=== PATIENT | male | born 1970 | race African-American/Black ===

== ENCOUNTER 2017-02-18 16:01 | Emergency (ER) | payer SELFPAY ==
[~2017-02-18] VITALS: Ht 182.9 cm; Wt 121.5 kg
[2017-02-18 16:58] VITALS: BP 104/66
== END 2017-02-18 17:34 | disposition left against medical advice (07) ==
LOC: EME 16:01
DX: T40.7X1A Poisoning by cannabis (derivatives), accidental (unintentional), initial encounter (principal); E11.9 Type 2 diabetes mellitus without complications; I10 Essential (primary) hypertension; Z86.718 Personal history of other venous thrombosis and embolism
CPT/HCPCS: 99281; 99283

== ENCOUNTER 2017-02-21 15:12 | Emergency (ER) | payer SELFPAY ==
[~2017-02-21] VITALS: Ht 182.9 cm; Wt 123.7 kg
[2017-02-21 15:23] VITALS: BP 102/67
== END 2017-02-21 15:28 | disposition left against medical advice (07) ==
LOC: EME → EDBD 15:12 → EME 15:19
DX: Z03.89 Encounter for observation for other suspected diseases and conditions ruled out (principal); Z53.21 Procedure and treatment not carried out due to patient leaving prior to being seen by health care provider

== ENCOUNTER 2017-03-04 10:33 | Emergency (ER) | payer SELFPAY ==
[~2017-03-04] VITALS: Ht 182.9 cm; Wt 115.1 kg
[2017-03-04 11:08] VITALS: BP 91/68
== END 2017-03-04 11:10 | disposition left against medical advice (07) ==
LOC: EME 10:33
DX: F19.10 Other psychoactive substance abuse, uncomplicated (principal); R45.4 Irritability and anger; Z86.718 Personal history of other venous thrombosis and embolism; Z79.01 Long term (current) use of anticoagulants
CPT/HCPCS: 99281; 99284

== ENCOUNTER 2017-03-04 12:56 | Emergency (ER) | payer SELFPAY ==
[~2017-03-04] VITALS: Ht 182.9 cm; Wt 117.3 kg
[2017-03-04 13:27] LABS: EOSINOPHIL (%) 0.5 % (0-5); HEMATOCRIT 43.5 % (38.0-50.0); IMMATURE GRANULOCYTE (%) 0.4 % (0.0-0.7); LYMPHOCYTE COUNT 3.5 K/uL (1.0-2.8); MCH 27.8 PG (29.0-34.0); MCHC 32.4 G/DL (30.0-36.0); MCV 85.8 FL (86-99); MEAN PLAT.VOLUME 8.9 uM^3 (9.0-12.4); MONOCYTE (%) 7.7 % (3-12); MONOCYTE COUNT 0.6 K/uL (0-0.8); PLATELET COUNT 343 K/uL (156-360); RBC DIS.WIDTH-CV 14.6 % (11.8-14.6); RBC DIS.WIDTH-SD 45.6 % (39-53); RED BLOOD COUNT 5.07 M/uL (4.00-5.50); WHITE BLOOD COUNT 8.2 K/uL (4.1-10.2)
[2017-03-04 13:37] LABS: CHLORIDE 105 mEq/L (99-109); POTASSIUM 4.6 mEq/L (3.7-5.4); SODIUM 138 mEq/L (136-147)
[2017-03-04 13:39] LABS: GLUCOSE 112 mg/dL (70-99)
[2017-03-04 13:41] LABS: ANION GAP 12 MEQ/L (2-14)
[2017-03-04 13:43] LABS: GFR ESTIMATE (CALCULATED) 44 mL/min/
[2017-03-04 13:45] LABS: UREA NITROGEN (BUN) 15 mg/dL (9-23)
[2017-03-04 13:46] LABS: SALICYLATE < 5.0 MG/DL (15-30)
[2017-03-04 15:49] LABS: ADD MEDTOX COMMENT Y; AMPHETAMINE NEGATIVE (500 ng/mL); BARBITURATES NEGATIVE (200 ng/mL); BENZODIAZEPINES NEGATIVE (150 ng/mL); COCAINE PRESUMPTIVE POSITIVE (150 ng/mL); INTERNAL CONTROLS VALID? YES; METHADONE NEGATIVE (200 ng/mL); METHAMPHETAMINE NEGATIVE (500 ng/mL); OPIATES (MORPHINE) PRESUMPTIVE POSITIVE (100 ng/mL); OXYCODONE NEGATIVE (100 ng/mL); PHENCYCLIDINE NEGATIVE (25 ng/mL); PROPOXYPHENE NEGATIVE (300 ng/mL); THC CANNABINOIDS PRESUMPTIVE POSITIVE (50 ng/mL); TRICYCLIC ANTIDEPRESSANTS NEGATIVE (300 ng/mL)
[2017-03-04 15:50] VITALS: BP 138/88
[2017-03-04 16:56] LABS: OPIATES QUANTITATIVE VALUE 0 NG/ML
== END 2017-03-04 16:27 | disposition left against medical advice (07) ==
LOC: EME 12:56
PROVIDERS: Emergency Medicine
DX: T40.7X1A Poisoning by cannabis (derivatives), accidental (unintentional), initial encounter (principal); R41.82 Altered mental status, unspecified; E11.9 Type 2 diabetes mellitus without complications; I10 Essential (primary) hypertension; Z86.718 Personal history of other venous thrombosis and embolism
CPT/HCPCS: 80048; 84999; 85025; 99281; 99284; G0480

== ENCOUNTER 2017-12-04 08:05 | Emergency (ER) | payer SELFPAY ==
[~2017-12-04] VITALS: Ht 185.4 cm; Wt 115.9 kg
[2017-12-04 08:51] LABS: BASOPHIL (%) 0.1 % (0-1); EOSINOPHIL (%) 0 % (0-5); HEMATOCRIT 44.6 % (38.0-50.0); HEMOGLOBIN 14.8 G/DL (12.5-16.6); IMMATURE GRANULOCYTE (%) 0.3 % (0.0-0.7); LYMPHOCYTE (%) 13.2 % (15-42); MCH 27.9 PG (29.0-34.0); MCHC 33.2 G/DL (30.0-36.0); MCV 84.2 FL (86-99); MONOCYTE COUNT 0.4 K/uL (0-0.8); NEUTROPHIL (%) 83.4 % (45-76); NEUTROPHIL COUNT 12.3 K/uL (1.8-6.4); PLATELET COUNT 400 K/uL (156-360); RBC DIS.WIDTH-SD 39.9 % (39-53); WHITE BLOOD COUNT 14.8 K/uL (4.1-10.2)
[2017-12-04 08:56] LABS: INTER. NORMALIZED RATIO 1.1
[2017-12-04 08:58] LABS: D-DIMER ELISA < 150.00 ng/mLDDU (<230); PTT 24.5 SEC (25-37)
[2017-12-04 09:00] LABS: CHLORIDE 101 mEq/L (99-109); POTASSIUM 4.6 mEq/L (3.7-5.4); SODIUM 139 mEq/L (136-147)
[2017-12-04 09:02] LABS: GLUCOSE 209 mg/dL (70-99)
[2017-12-04 09:06] LABS: CREATININE 1.4 mg/dL (0.6-1.3); GFR ESTIMATE (CALCULATED) > 59 mL/min/ (58.99-99999); UREA NITROGEN (BUN) 12 mg/dL (9-23)
[2017-12-04 09:10] LABS: TROP-I INTERPRETATION NEGATIVE; TROPONIN-I < 0.01 ng/mL (0.0-0.30)
[2017-12-04 12:05] LABS: TROP-I INTERPRETATION NEGATIVE; TROPONIN-I < 0.01 ng/mL (0.0-0.30)
[2017-12-04] MEDS ORDERED: METFORMIN HCL500 MG PO (12:25)
[2017-12-04] MEDS ORDERED: NORVASC5 MG PO (12:25)
[2017-12-04 12:44] VITALS: BP 180/102
== END 2017-12-04 12:58 | disposition home or self-care (01) ==
LOC: EME 08:05
PROVIDERS: Emergency Medicine
DX: R07.89 Other chest pain (principal); I10 Essential (primary) hypertension; E11.65 Type 2 diabetes mellitus with hyperglycemia; R94.31 Abnormal electrocardiogram [ECG] [EKG]; Z91.14 Patient's other noncompliance with medication regimen; Z86.718 Personal history of other venous thrombosis and embolism; Z88.5 Allergy status to narcotic agent
CPT/HCPCS: 71045; 80048; 84484; 85025; 85379; 85610; 85730; 87502; 93005; 99281; 99285; J2405; J7030